=== PATIENT | female | born 1960 | race African-American/Black ===

== ENCOUNTER 2017-04-28 20:19 | Emergency (ER) | payer MEDICARE ==
[~2017-04-28] VITALS: Ht 177.8 cm; Wt 130.6 kg
[~2017-04-28 20:19] MED LIST: AMIT25TA9 PO; AMLO10TA88 PO; ASPI-1063 PO; BENA40TA2 PO; CYCL-365 PO; ESTR0.3T3 PO; FAMO20TA8 PO; HYDR1TAB4 PO; MELO15TA13 PO; MOME17SP NS; MONT10TA22 PO; PSEU120T71 PO; [UNRECOGNIZED DRUG - CODE] PO
[2017-04-28 20:20] VITALS: BP_SYST 120
[2017-04-28] MEDS ORDERED: NACL 0.9% 1,000 ML IV ONE (21:15)
[2017-04-28] MEDS ORDERED: PANTOPRAZOLE SODIUM 40 MG/VIAL (PROTONIX) IVP ONE (21:15)
[2017-04-28 22:05] LABS: BASOPHILS # (AUTO) 0.2 K/uL (0.0-0.2); BASOPHILS % (AUTO) 2.4 % (0.0-2.0); EOSINOPHILS # (AUTO) 0.2 K/uL (0.0-0.4); EOSINOPHILS % (AUTO) 2.4 % (0.0-4.0); HEMATOCRIT 41.8 % (36-48); HEMOGLOBIN 13.8 g/dL (12.0-16.0); LYMPHOCYTES # (AUTO) 3.5 K/uL (1.0-5.5); LYMPHOCYTES % (AUTO) 41.1 % (20.5-51.5); MEAN CORPUSCULAR HEMOGLOBIN 28 pg (27-31); MEAN CORPUSCULAR HGB CONC 33 % (32-36); MEAN CORPUSCULAR VOLUME 86 fL (79.0-98.0); MONOCYTES # (AUTO) 0.6 K/uL (0.0-1.0); MONOCYTES % (AUTO) 7.6 % (1.7-9.3); NEUTROPHILS % (AUTO) 46.5 % (40.0-70.0); PLATELET COUNT (AUTO) 192 K/uL (130-430); RED BLOOD CELL COUNT(AUTO) 4.88 MIL/uL (4.2-6.2); RED CELL DISTRIBUTION WIDTH 14.2 % (9.0-15.0); WHITE BLOOD COUNT (AUTO) 8.5 K/uL (4.8-10.8)
[2017-04-28 22:18] LABS: CALCIUM 8.8 mg/dL (8.4-11.0); CREATININE 1.02 mg/dL (0.55-1.30); POTASSIUM 3.4 mmol/L (3.5-5.1)
[2017-04-28 22:22] LABS: ALBUMIN 3.1 g/dL (3.4-4.8); INR 0.9 (0.8-1.2); PROTHROMBIN TIME 9.9 SECS (9.5-12.5); TOTAL BILIRUBIN 0.4 mg/dL (0.0-1.0); TOTAL PROTEIN, SERUM 6.7 g/dL (6.4-8.3)
[2017-04-28 23:50] VITALS: BP_SYST 136
== END 2017-04-28 23:50 | disposition home or self-care (01) ==
LOC: SED 20:19
DX: K62.5 Hemorrhage of anus and rectum (principal); K21.9 Gastro-esophageal reflux disease without esophagitis; I10 Essential (primary) hypertension; Z88.0 Allergy status to penicillin; Z88.2 Allergy status to sulfonamides
CPT/HCPCS: 36415; 80053; 85025; 85610; 85730; 96361; 96374; 99284; C9113; J7030

== ENCOUNTER 2018-09-16 12:13 | Emergency (ER) | payer MEDICARE ==
[~2018-09-16] VITALS: Ht 177.8 cm; Wt 136.1 kg
[~2018-09-16 12:13] MED LIST changes: -ASPI-1063 PO; +ASPI-1153 PO; -CYCL-365 PO; +CYCL10TA9 PO
[2018-09-16 12:19] VITALS: BP_SYST 162
[2018-09-16 12:59] LABS: EOSINOPHILS # (AUTO) 0.2 K/uL (0.0-0.4); MEAN CORPUSCULAR HEMOGLOBIN 27 pg (27-31); MEAN CORPUSCULAR HGB CONC 32 % (32-36); MONOCYTES # (AUTO) 0.5 K/uL (0.0-1.0)
[2018-09-16 13:04] LABS: RED BLOOD CELL COUNT(AUTO) 5.81 MIL/uL (4.2-6.2); WHITE BLOOD COUNT (AUTO) 9.9 K/uL (4.8-10.8)
[2018-09-16 13:05] LABS: BASOPHILS % (AUTO) 0.5 % (0.0-2.0); EOSINOPHILS % (AUTO) 2.4 % (0.0-4.0); HEMATOCRIT 48.5 % (36-48); HEMOGLOBIN 15.5 g/dL (12.0-16.0); LYMPHOCYTES # (AUTO) 3.2 K/uL (1.0-5.5); LYMPHOCYTES % (AUTO) 32.2 % (20.5-51.5); MEAN CORPUSCULAR VOLUME 84 fL (79.0-98.0); MONOCYTES % (AUTO) 4.8 % (1.7-9.3); NEUTROPHILS % (AUTO) 60.1 % (40.0-70.0); PLATELET COUNT (AUTO) 245 K/uL (130-430); RED CELL DISTRIBUTION WIDTH 16.9 % (9.0-15.0)
[2018-09-16 13:08] LABS: CALCIUM 10.1 mg/dL (8.4-11.0); CREATININE 0.81 mg/dL (0.55-1.30); POTASSIUM 3.9 mmol/L (3.5-5.1)
[2018-09-16 13:14] LABS: ALBUMIN 3.4 g/dL (3.4-4.8)
--- NOTE | 2018-09-16 13:14 | NUR ---
Patient to ER bed 3 to gown for evaluation. Side rails up. Report given to Marilu MCKEON.
--- NOTE | 2018-09-16 13:16 | NUR ---
Pt brought by self, A&Ox4, pt presents to ER with sore throat and weakness, pt is afebrile, VS WNL, respirations are even and unlabored, skin pink and warm.
--- NOTE | 2018-09-16 13:30 | NUR ---
Dorothy Shields [employer] at bedside examining patient
[2018-09-16] MEDS ORDERED: DEXAMETHASONE SOD PHOSPHATE 10 MG/ML VIAL IM ONE (14:00)
[2018-09-16] MEDS ORDERED: KETOROLAC TROMETHAMINE 60 MG/2 ML VIAL IM ONE (14:00)
--- NOTE | 2018-09-16 14:00 | NUR ---
Pt on stable condition , VS WNL, respirations even and unlabored.
[2018-09-16 14:45] VITALS: BP_SYST 158
--- NOTE | 2018-09-16 14:48 | NUR ---
Patient given written and verbal discharge instructions and verbalizes understanding. ER MD discussed with patient the results and treatment provided. Patient in stable condition. ID arm band removed. Rx of Levaquin,Medrol, Albuterol, Debrox given. Patient educated on pain management and to follow up with PMD. Pain Scale 3/10 tolerable for patient. Opportunity for questions provided and answered. Medication side effect fact sheet provided.
== END 2018-09-16 14:45 | disposition home or self-care (01) ==
LOC: SED 12:13
DX: J18.9 Pneumonia, unspecified organism (principal); H61.21 Impacted cerumen, right ear; J02.8 Acute pharyngitis due to other specified organisms; B97.89 Other viral agents as the cause of diseases classified elsewhere; E11.9 Type 2 diabetes mellitus without complications; J45.909 Unspecified asthma, uncomplicated; K21.9 Gastro-esophageal reflux disease without esophagitis; I10 Essential (primary) hypertension; F17.210 Nicotine dependence, cigarettes, uncomplicated; Z90.49 Acquired absence of other specified parts of digestive tract; Z95.0 Presence of cardiac pacemaker; Z88.0 Allergy status to penicillin; Z88.2 Allergy status to sulfonamides; Z79.899 Other long term (current) drug therapy
CPT/HCPCS: 36415; 71045; 80053; 85025; 86403; 87081; 96372; 99285; J1100; J1885

== ENCOUNTER 2018-11-01 13:08 | Inpatient (IN) | payer MEDICARE ==
[~2018-11-01] VITALS: Ht 177.8 cm; Wt 145.1 kg
[2018-11-01 13:16] VITALS: BP_SYST 125
[2018-11-01] MEDS ORDERED: MORPHINE 4 MG/ML INJ. SYRINGE IVP ONE ×2 (13:30→16:45)
[2018-11-01] MEDS ORDERED: DIPHENHYDRAMINE INJ 50 MG/ML VIAL IVP ONE (13:30)
[2018-11-01] MEDS ORDERED: PIPERACILLIN/TAZO 3.38 GM in NS 50 ML IV ONE (13:30)
[2018-11-01] MEDS ORDERED: PIPERACILLIN/TAZOBACTAM 3.375 GM/VIAL (ZOSYN) IV ONE (13:47)
[2018-11-01 15:08] LABS: BASOPHILS # (AUTO) 0.1 K/uL (0.0-0.2); BASOPHILS % (AUTO) 0.8 % (0.0-2.0); EOSINOPHILS # (AUTO) 0.1 K/uL (0.0-0.4); EOSINOPHILS % (AUTO) 0.7 % (0.0-4.0); HEMATOCRIT 53.1 % (36-48); LYMPHOCYTES # (AUTO) 2.9 K/uL (1.0-5.5); LYMPHOCYTES % (AUTO) 28.2 % (20.5-51.5); MEAN CORPUSCULAR HEMOGLOBIN 28 pg (27-31); MEAN CORPUSCULAR HGB CONC 32 % (32-36); MEAN CORPUSCULAR VOLUME 87 fL (79.0-98.0); MONOCYTES # (AUTO) 0.7 K/uL (0.0-1.0); MONOCYTES % (AUTO) 6.7 % (1.7-9.3); NEUTROPHILS # (AUTO) 6.7 K/uL (1.8-7.7); NEUTROPHILS % (AUTO) 63.6 % (40.0-70.0); PLATELET COUNT (AUTO) 293 K/uL (130-430); RED BLOOD CELL COUNT(AUTO) 6.09 MIL/uL (4.2-6.2); RED CELL DISTRIBUTION WIDTH 15.5 % (9.0-15.0); WHITE BLOOD COUNT (AUTO) 10.5 K/uL (4.8-10.8)
[2018-11-01 15:13] LABS: CALCIUM 10.2 mg/dL (8.4-11.0); CREATININE 1.41 mg/dL (0.55-1.30); POTASSIUM 3.8 mmol/L (3.5-5.1)
[2018-11-01 15:14] LABS: PROTHROMBIN TIME 10.1 SECS (9.5-12.5)
[2018-11-01 15:18] LABS: ALBUMIN 3.8 g/dL (3.4-4.8); TOTAL BILIRUBIN 1.9 mg/dL (0.0-1.0)
[2018-11-01] MEDS ORDERED: HYDR25TA4 PO (16:10)
[2018-11-01] MEDS ORDERED: METF750T PO (16:10)
[2018-11-01] MEDS ORDERED: TRAM1TAB33 PO (16:10)
[2018-11-01] MEDS ORDERED: PRO40 PO (16:10)
[2018-11-01] MEDS ORDERED: LIP20 PO (16:10)
[2018-11-01] MEDS ORDERED: GLIM2TAB2 PO (16:10)
[2018-11-01] MEDS ORDERED: NACL 0.9% 1,000 ML IV ONE (16:45)
[2018-11-01] MEDS ORDERED: ONDANSETRON HCL 4 MG/2 ML VIAL IVP ONE (16:45)
[2018-11-01] MEDS ORDERED: LORazepam 2 MG/ML VIAL IVP PRN (17:30)
[2018-11-01] MEDS ORDERED: ONDANSETRON HCL 4 MG/2 ML VIAL IVP PRN (17:30)
[2018-11-01] MEDS ORDERED: HYDROcodone/ACETAMIN 5-325 MG TAB (NORCO/ VICODIN) PO PRN (17:30)
[2018-11-01] MEDS ORDERED: ACETAMINOPHEN 325 MG TABLET PO PRN (17:30)
[2018-11-01] MEDS ORDERED: MORPHINE 4 MG/ML INJ. SYRINGE IVP PRN (17:30)
[2018-11-01 17:33] VITALS: BP_SYST 106
[2018-11-01] MEDS: D5/0.45 NS 1,000 ML IV SCH (19:54)
[2018-11-01] MEDS ORDERED: fentaNYL CITRATE 250 MCG/5 ML AMP IV ONE (19:55)
[2018-11-01] MEDS ORDERED: ROCURONIUM BROMIDE 10 MG/ML (ZEMURON) IV ONE (19:55)
[2018-11-01] MEDS ORDERED: NS IRRIG SOLN 1000 ML IR ONE (19:55)
[2018-11-01] MEDS ORDERED: MIDAZOLAM HCL 5 MG/5 ML VIAL IVP ONE (19:55)
[2018-11-01] MEDS ORDERED: LABETALOL 100 MG/ 20ML VIAL IVP ONE (19:55)
[2018-11-01] MEDS ORDERED: PROPOFOL 200MG/ 20ML VIAL (DIPRIVAN) IV ONE (19:55)
[2018-11-01] MEDS ORDERED: NS 1000 ML IV.SOLN IV ONE (19:55)
[2018-11-01] MEDS ORDERED: SEVOFLURANE 15 MIN GAS INH ONE (19:55)
[2018-11-01 20:00] VITALS: BP_SYST 113
[2018-11-01] MEDS: AMITRIPTYLINE HCL 25 MG TABLET (ELAVIL) PO SCH (21:00)
[2018-11-01] MEDS: ATORVASTATIN 20 MG TABLET PO SCH (21:00)
[2018-11-02 00:51] VITALS: BP_SYST 117
[2018-11-02 06:41] LABS: CREATININE 1.28 mg/dL (0.55-1.30); POTASSIUM 3.6 mmol/L (3.5-5.1)
[2018-11-02 06:51] LABS: ALBUMIN 3.1 g/dL (3.4-4.8); PHOSPHORUS 4.1 mg/dL (2.7-4.5); TOTAL BILIRUBIN 1.8 mg/dL (0.0-1.0)
[2018-11-02 07:28] LABS: BASOPHILS % (AUTO) 0.4 % (0.0-2.0); EOSINOPHILS # (AUTO) 0.1 K/uL (0.0-0.4); HEMATOCRIT 47.8 % (36-48); HEMOGLOBIN 15.4 g/dL (12.0-16.0); LYMPHOCYTES # (AUTO) 3.3 K/uL (1.0-5.5); LYMPHOCYTES % (AUTO) 38.3 % (20.5-51.5); MEAN CORPUSCULAR HEMOGLOBIN 28 pg (27-31); MEAN CORPUSCULAR HGB CONC 32 % (32-36); MEAN CORPUSCULAR VOLUME 86 fL (79.0-98.0); MONOCYTES % (AUTO) 11.5 % (1.7-9.3); NEUTROPHILS # (AUTO) 4.1 K/uL (1.8-7.7); NEUTROPHILS % (AUTO) 48.8 % (40.0-70.0); PLATELET COUNT (AUTO) 263 K/uL (130-430); RED BLOOD CELL COUNT(AUTO) 5.55 MIL/uL (4.2-6.2); RED CELL DISTRIBUTION WIDTH 15.4 % (9.0-15.0); WHITE BLOOD COUNT (AUTO) 8.5 K/uL (4.8-10.8)
[2018-11-02] MEDS ORDERED: DIATR MEGLU/DIATRIZ SOD 30 ML SOLUTION PO ONE (08:49)
[2018-11-02] MEDS: ASPIRIN 81 MG TABLET(ECOTRIN) PO SCH (09:00)
[2018-11-02] MEDS: amLODIPine BESYLATE 10 MG TABLET PO SCH (09:00)
[2018-11-02] MEDS: FAMOTIDINE 20 MG TABLET PO SCH ×2 (09:00→22:56)
[2018-11-02] MEDS: PANTOPRAZOLE SODIUM 40 MG TAB PO SCH (09:00)
[2018-11-02] MEDS: HYDROCHLOROTHIAZIDE 25 MG TABLET (HCTZ) PO SCH (09:00)
[2018-11-02] MEDS: BENAZEPRIL HCL 20 MG TABLET (LOTENSIN) PO SCH (09:00)
[2018-11-02] MEDS: ESTROGENS,CONJUGATED 0.3 MG TABLET PO SCH (09:00)
[2018-11-02 09:40] VITALS: BP_SYST 118
[2018-11-02 11:14] LABS: BILIRUBIN,URINE NEGATIVE (NEGATIVE); BLOOD, URINE NEGATIVE (NEGATIVE); CLARITY/URINE CLEAR (CLEAR); COLOR,URINE YELLOW (YELLOW); GLUCOSE,URINE NEGATIVE (NEGATIVE); KETONES,URINE TRACE (NEGATIVE); LEUKOCYTE ESTERASE ,URINE 1+ (NEGATIVE); NITRITE, URINE NEGATIVE (NEGATIVE); PROTEIN URINE 1+ (NEGATIVE)
[2018-11-02 12:00] VITALS: BP_SYST 140
[2018-11-02 12:45] LABS: BACTERIA,URINE MODERATE /HPF (None Seen); RBC,URINE 0-3 /HPF (0-3)
[2018-11-02 12:46] LABS: MUCUS,URINE None Seen /LPF (None Seen)
[2018-11-02] MEDS: D5/0.45 NS 1,000 ML IV SCH ×2 (13:16→15:00)
[2018-11-02] MEDS ORDERED: cefTRIAXone 1 GM in D5W 50 ML IV SCH (15:30)
[2018-11-02] MEDS ORDERED: cefTRIAXone 1 GM in D5W 50 ML IV ONE (15:34)
[2018-11-02 16:00] VITALS: BP_SYST 145
[2018-11-02] MEDS ORDERED: fentaNYL CITRATE/PF 100 MCG/2 ML AMP IVP PRN ×2 (21:00)
[2018-11-02] MEDS ORDERED: ONDANSETRON HCL 4 MG/2 ML VIAL IVP PRN (21:00)
[2018-11-02] MEDS ORDERED: ACETAMINOPHEN 325 MG TABLET PO PRN (22:00)
[2018-11-02] MEDS ORDERED: HYDROcodone/ACETAMIN 5-325 MG TAB (NORCO/ VICODIN) PO PRN (22:00)
[2018-11-02] MEDS ORDERED: PROPOFOL DRIP 100 ML IV ONE (22:11)
[2018-11-02] MEDS: ATORVASTATIN 20 MG TABLET PO SCH (22:55)
[2018-11-02] MEDS: AMITRIPTYLINE HCL 25 MG TABLET (ELAVIL) PO SCH (22:55)
[2018-11-02] MEDS: PROPOFOL DRIP 100 ML IV PRN (23:00)
[2018-11-02] MEDS: NACL 0.9% 1,000 ML IV SCH (23:02)
[2018-11-02] MEDS: metroNIDAZOLE 500 mg/NS 100 ML IV SCH (23:09)
[2018-11-02] MEDS ORDERED: metroNIDAZOLE 500 mg/NS 200 ML IV ONE (23:09)
[2018-11-03] VITALS (29 sets, daily range): BP systolic 102–155
[2018-11-03] MEDS: HYDROmorphone 1 MG INJ. 1 MG/ML AMPUL IVP PRN ×6 (01:20→20:58)
[2018-11-03] MEDS: metroNIDAZOLE 500 mg/NS 100 ML IV SCH ×3 (06:04→19:37)
[2018-11-03] MEDS: PROPOFOL DRIP 100 ML IV PRN (06:07)
[2018-11-03 06:54] LABS: BASOPHILS % (AUTO) 0.1 % (0.0-2.0); EOSINOPHILS % (AUTO) 0.1 % (0.0-4.0); HEMATOCRIT 46.3 % (36-48); HEMOGLOBIN 15.1 g/dL (12.0-16.0); LYMPHOCYTES # (AUTO) 1.5 K/uL (1.0-5.5); LYMPHOCYTES % (AUTO) 10.9 % (20.5-51.5); MEAN CORPUSCULAR HEMOGLOBIN 28 pg (27-31); MEAN CORPUSCULAR HGB CONC 33 % (32-36); MEAN CORPUSCULAR VOLUME 87 fL (79.0-98.0); MONOCYTES # (AUTO) 1.1 K/uL (0.0-1.0); MONOCYTES % (AUTO) 7.7 % (1.7-9.3); NEUTROPHILS # (AUTO) 11.4 K/uL (1.8-7.7); PLATELET COUNT (AUTO) 231 K/uL (130-430); RED BLOOD CELL COUNT(AUTO) 5.34 MIL/uL (4.2-6.2); RED CELL DISTRIBUTION WIDTH 15.1 % (9.0-15.0)
[2018-11-03 07:41] LABS: ALBUMIN 2.8 g/dL (3.4-4.8); CALCIUM 8.4 mg/dL (8.4-11.0); CREATININE 1.17 mg/dL (0.55-1.30); PHOSPHORUS 4.2 mg/dL (2.7-4.5); POTASSIUM 3.2 mmol/L (3.5-5.1); TOTAL BILIRUBIN 1.4 mg/dL (0.0-1.0)
[2018-11-03] MEDS: NACL 0.9% 1,000 ML IV SCH ×2 (08:45→12:40)
[2018-11-03] MEDS: PANTOPRAZOLE SODIUM 40 MG TAB PO SCH (09:00)
[2018-11-03] MEDS: FAMOTIDINE 20 MG TABLET PO SCH (09:00)
[2018-11-03] MEDS: BENAZEPRIL HCL 20 MG TABLET (LOTENSIN) PO SCH (09:00)
[2018-11-03] MEDS: amLODIPine BESYLATE 10 MG TABLET PO SCH (09:00)
[2018-11-03] MEDS: ASPIRIN 81 MG TABLET(ECOTRIN) PO SCH (09:00)
[2018-11-03] MEDS: ESTROGENS,CONJUGATED 0.3 MG TABLET PO SCH (09:00)
[2018-11-03] MEDS: LACTOBACILLUS RHAMNOSUS GG 1 CAP CAPSULE PO SCH (09:00)
[2018-11-03] MEDS: HYDROCHLOROTHIAZIDE 25 MG TABLET (HCTZ) PO SCH (09:00)
[2018-11-03] MEDS ORDERED: POTASSIUM CHLORIDE 40 MEQ, LIDOCAINE JECT 2% PF 100 MG 50 MG in NS 250 ML IV ONE (09:30)
[2018-11-03] MEDS: cefTRIAXone 1 GM in D5W 50 ML IV SCH (10:55)
[2018-11-03] MEDS: D5/0.45 NS 1,000 ML IV SCH (11:05)
[2018-11-03] MEDS ORDERED: PANTOPRAZOLE SODIUM 40 MG/VIAL (PROTONIX) IVP ONE (12:00)
[2018-11-03 13:20] LABS: NEUTROPHILS % (AUTO) 81.2 % (40.0-70.0)
[2018-11-03] MEDS: ATORVASTATIN 20 MG TABLET PO SCH (20:57)
[2018-11-03] MEDS: AMITRIPTYLINE HCL 25 MG TABLET (ELAVIL) PO SCH (20:57)
[2018-11-04] VITALS (13 sets, daily range): BP systolic 131–147
[2018-11-04] MEDS: HYDROmorphone 1 MG INJ. 1 MG/ML AMPUL IVP PRN ×7 (00:07→23:19)
[2018-11-04] MEDS: NACL 0.9% 1,000 ML IV SCH ×2 (02:25→13:40)
[2018-11-04] MEDS: metroNIDAZOLE 500 mg/NS 100 ML IV SCH ×3 (03:11→20:05)
[2018-11-04 07:13] LABS: ALBUMIN 2.3 g/dL (3.4-4.8); BASOPHILS % (AUTO) 0.2 % (0.0-2.0); CALCIUM 8.4 mg/dL (8.4-11.0); CREATININE 0.86 mg/dL (0.55-1.30); EOSINOPHILS % (AUTO) 0.3 % (0.0-4.0); HEMATOCRIT 41.2 % (36-48); HEMOGLOBIN 13.1 g/dL (12.0-16.0); LYMPHOCYTES # (AUTO) 1.6 K/uL (1.0-5.5); LYMPHOCYTES % (AUTO) 11.1 % (20.5-51.5); MEAN CORPUSCULAR HEMOGLOBIN 28 pg (27-31); MEAN CORPUSCULAR HGB CONC 32 % (32-36); MEAN CORPUSCULAR VOLUME 87 fL (79.0-98.0); MONOCYTES # (AUTO) 1.4 K/uL (0.0-1.0); NEUTROPHILS % (AUTO) 78.4 % (40.0-70.0); PHOSPHORUS 2.5 mg/dL (2.7-4.5); PLATELET COUNT (AUTO) 206 K/uL (130-430); POTASSIUM 3.6 mmol/L (3.5-5.1); RED BLOOD CELL COUNT(AUTO) 4.74 MIL/uL (4.2-6.2); RED CELL DISTRIBUTION WIDTH 15.2 % (9.0-15.0)
[2018-11-04] MEDS: ASPIRIN 81 MG TABLET(ECOTRIN) PO SCH (09:00)
[2018-11-04] MEDS: LACTOBACILLUS RHAMNOSUS GG 1 CAP CAPSULE PO SCH (09:00)
[2018-11-04] MEDS: ESTROGENS,CONJUGATED 0.3 MG TABLET PO SCH (09:00)
[2018-11-04] MEDS ORDERED: PANTOPRAZOLE SODIUM 40 MG/VIAL (PROTONIX) IVP SCH (09:00)
[2018-11-04] MEDS: HYDROCHLOROTHIAZIDE 25 MG TABLET (HCTZ) PO SCH (09:00)
[2018-11-04] MEDS: amLODIPine BESYLATE 10 MG TABLET PO SCH (09:00)
[2018-11-04] MEDS: BENAZEPRIL HCL 20 MG TABLET (LOTENSIN) PO SCH (09:00)
[2018-11-04] MEDS: cefTRIAXone 1 GM in D5W 50 ML IV SCH (09:30)
[2018-11-04] MEDS: ATORVASTATIN 20 MG TABLET PO SCH (21:00)
[2018-11-04] MEDS: AMITRIPTYLINE HCL 25 MG TABLET (ELAVIL) PO SCH (21:00)
[2018-11-05 01:33] VITALS: BP_SYST 126
[2018-11-05] MEDS: HYDROmorphone 1 MG INJ. 1 MG/ML AMPUL IVP PRN (02:47)
[2018-11-05] MEDS: metroNIDAZOLE 500 mg/NS 100 ML IV SCH (03:40)
[2018-11-05 04:30] VITALS: BP_SYST 143
[2018-11-05 04:38] VITALS: BP_SYST 143
== END 2018-11-05 05:15 | disposition short-term general hospital (02) | DRG 710 ==
LOC: SED 13:08 → SMU 16:19 → SIC 11-02 21:44 → STU 11-04 19:16
PROVIDERS: ADMIT Family Medicine; ATTEND Family Medicine
PROC: 0DB84ZZ Excision of Small Intestine, Percutaneous Endoscopic Approach (ICD-10-PCS; 2018-11-02)
PROC: 0WUF0JZ Supplement Abdominal Wall with Synthetic Substitute, Open Approach (ICD-10-PCS; 2018-11-02)
PROC: 3E1M38Z Irrigation of Peritoneal Cavity using Irrigating Substance, Percutaneous Approach (ICD-10-PCS; 2018-11-02)
PROC: 0D9670Z Drainage of Stomach with Drainage Device, Via Natural or Artificial Opening (ICD-10-PCS; 2018-11-02)
PROC: 0BH17EZ Insertion of Endotracheal Airway into Trachea, Via Natural or Artificial Opening (ICD-10-PCS; 2018-11-02)
PROC: 5A1945Z Respiratory Ventilation, 24-96 Consecutive Hours (ICD-10-PCS; principal; 2018-11-02 19:00)
DX: A41.9 Sepsis, unspecified organism (principal); J96.00 Acute respiratory failure, unspecified whether with hypoxia or hypercapnia; N17.0 Acute kidney failure with tubular necrosis; E44.0 Moderate protein-calorie malnutrition; E66.01 Morbid (severe) obesity due to excess calories; K43.0 Incisional hernia with obstruction, without gangrene; E11.65 Type 2 diabetes mellitus with hyperglycemia; N39.0 Urinary tract infection, site not specified; E78.5 Hyperlipidemia, unspecified; E87.1 Hypo-osmolality and hyponatremia; E87.6 Hypokalemia; I10 Essential (primary) hypertension; K21.9 Gastro-esophageal reflux disease without esophagitis; K76.0 Fatty (change of) liver, not elsewhere classified; G89.29 Other chronic pain; M19.90 Unspecified osteoarthritis, unspecified site; Z87.891 Personal history of nicotine dependence; Z90.81 Acquired absence of spleen; Z68.42 Body mass index [BMI] 45.0-49.9, adult; Z88.0 Allergy status to penicillin; Z88.2 Allergy status to sulfonamides; Z90.49 Acquired absence of other specified parts of digestive tract
CPT/HCPCS: 36415; 36600; 71045; 80048; 80053; 81000-TC; 82803-TC; 82962; 83036; 83605; 83690-TC; 83735-TC; 84100-TC; 85025; 85610-TC; 87040-TC; 87081; 87086; 88307; 93005; 94002; 94003; 96361; 96365; 96375; 96376; 99285; C1751; C9113; G0378; J0696; J1170; J1200; J2060; J2250; J2270; J2405; J2543; J2704; J3010; J3480; J3490; J7030; J7050; J7060; Q9964

== ENCOUNTER 2018-11-24 14:37 | Emergency (ER) | payer MEDICARE ==
[~2018-11-24] VITALS: Ht 177.8 cm; Wt 136.1 kg
[~2018-11-24 14:37] MED LIST changes: +GLIM2TAB2 PO; +HYDR25TA4 PO; +LIP20 PO; +METF750T PO; +PRO40 PO; +TRAM1TAB33 PO
[2018-11-24 15:00] VITALS: BP_SYST 124
[2018-11-24 16:35] VITALS: BP_SYST 125
== END 2018-11-24 16:35 | disposition home or self-care (01) ==
LOC: SED 14:37
DX: Z48.815 Encounter for surgical aftercare following surgery on the digestive system (principal); J45.909 Unspecified asthma, uncomplicated; K21.9 Gastro-esophageal reflux disease without esophagitis; E11.9 Type 2 diabetes mellitus without complications; I10 Essential (primary) hypertension; M19.90 Unspecified osteoarthritis, unspecified site; Z88.0 Allergy status to penicillin; Z88.2 Allergy status to sulfonamides; Z79.82 Long term (current) use of aspirin; Z79.899 Other long term (current) drug therapy
CPT/HCPCS: 99282

== ENCOUNTER 2019-09-20 09:21 | Emergency (ER) | payer BC, MEDICARE ==
[~2019-09-20] VITALS: Ht 177.8 cm; Wt 131.1 kg
[~2019-09-20 09:21] MED LIST changes: -BENA40TA2 PO; +BENA40TA8 PO; +TRAM-350 PO; -TRAM1TAB33 PO
[2019-09-20 09:52] VITALS: BP_SYST 142
[2019-09-20 13:30] VITALS: BP_SYST 142
== END 2019-09-20 13:30 | disposition home or self-care (01) ==
LOC: SED 09:21
DX: H10.9 Unspecified conjunctivitis (principal); I10 Essential (primary) hypertension; E11.9 Type 2 diabetes mellitus without complications; J45.909 Unspecified asthma, uncomplicated; K21.9 Gastro-esophageal reflux disease without esophagitis; Z88.0 Allergy status to penicillin; Z88.2 Allergy status to sulfonamides; Z79.82 Long term (current) use of aspirin; Z79.899 Other long term (current) drug therapy
CPT/HCPCS: 99283

== ENCOUNTER 2023-09-30 08:13 | Emergency (ER) | payer MEDICARE, BC ==
[~2023-09-30] VITALS: Ht 177.8 cm; Wt 104.3 kg
[~2023-09-30 08:13] MED LIST changes: -ASPI-1153 PO; +ASPI-1393 PO; -BENA40TA8 PO; +BENA40TA89 PO; +CYCL10TA25 PO; -CYCL10TA9 PO; +GLIM2TAB PO; -GLIM2TAB2 PO; -MOME17SP NS; +MOME17SP5 NS; +MONT-47 PO; -MONT10TA22 PO
[2023-09-30 08:22] VITALS: BP_SYST 97; PULSE 70; RESP 18; TEMP 97; O2SAT 97
[2023-09-30] MEDS ORDERED: NACL 0.9% 1,000 ML IV ONE (08:30)
[2023-09-30 09:09] LABS: BASOPHILS # (AUTO) 0.1 K/uL (0.0-0.2); BASOPHILS % (AUTO) 1.3 % (0.0-2.0); EOSINOPHILS # (AUTO) 0.1 K/uL (0.0-0.4); EOSINOPHILS % (AUTO) 2.1 % (0.0-4.0); HEMATOCRIT 41.5 % (36-48); HEMOGLOBIN 13.4 g/dL (12.0-16.0); LYMPHOCYTES # (AUTO) 2.1 K/uL (1.0-5.5); LYMPHOCYTES % (AUTO) 39.6 % (20.5-51.5); MEAN CORPUSCULAR HEMOGLOBIN 28 pg (27-31); MEAN CORPUSCULAR HGB CONC 32 % (32-36); MEAN CORPUSCULAR VOLUME 88 fL (79.0-98.0); MONOCYTES # (AUTO) 0.6 K/uL (0.0-1.0); MONOCYTES % (AUTO) 10.8 % (1.7-9.3); NEUTROPHILS # (AUTO) 2.5 K/uL (1.8-7.7); NEUTROPHILS % (AUTO) 46.2 % (40.0-70.0); PLATELET COUNT (AUTO) 289 K/uL (130-430); RED BLOOD CELL COUNT(AUTO) 4.74 MIL/uL (4.2-6.2); RED CELL DISTRIBUTION WIDTH 14.2 % (9.0-15.0); WHITE BLOOD COUNT (AUTO) 5.4 K/uL (4.8-10.8)
[2023-09-30 09:19] LABS: CALCIUM 9.1 mg/dL (8.4-11.0); CREATININE 0.93 mg/dL (0.55-1.30); POTASSIUM 3.3 mmol/L (3.5-5.1)
[2023-09-30 09:22] LABS: PROTHROMBIN TIME 10.4 SECS (9.5-12.5)
[2023-09-30 09:23] LABS: ALBUMIN 3.1 g/dL (3.4-4.8); TOTAL BILIRUBIN 0.9 mg/dL (0.0-1.0); TOTAL PROTEIN, SERUM 6.9 g/dL (6.4-8.3)
[2023-09-30] MEDS ORDERED: ANURH RC (11:55)
[2023-09-30 12:33] VITALS: BP_SYST 109; PULSE 59; RESP 19; TEMP 97.7; O2SAT 99
== END 2023-09-30 12:33 | disposition home or self-care (01) ==
LOC: SED 08:13
DX: K62.5 Hemorrhage of anus and rectum (principal); R42 Dizziness and giddiness; J45.909 Unspecified asthma, uncomplicated; E11.9 Type 2 diabetes mellitus without complications; I10 Essential (primary) hypertension; K21.9 Gastro-esophageal reflux disease without esophagitis; Z88.0 Allergy status to penicillin; Z88.2 Allergy status to sulfonamides; Z79.899 Other long term (current) drug therapy
CPT/HCPCS: 99285; 74177; 96360; 80053; 85025; 85610; 85730; 36415; 76376; Q9967; J7030